=== PATIENT | female | born 2000 | race Hispanic/Latino ===

== ENCOUNTER 2022-07-20 11:01 | Emergency (ER) | payer OTHER, BC ==
[2022-07-20] MEDS ORDERED: Lidocaine 2% PF 5 ML VIAL ONE (11:53)
[2022-07-20] MEDS ORDERED: Triple Antibiotic Oint 1 GM Packet ONE (11:53)
[2022-07-20] MEDS ORDERED: Bacitracin 1 PK ONE (14:15)
[2022-07-20] MEDS ORDERED: Boostrix 0.5 ML (Tdap) VIAL (>/=7 yrs of age) ONE (14:15)
== END 2022-07-20 14:55 | disposition home or self-care (01) ==
LOC: ERS 11:01
DX: S61.452A Open bite of left hand, initial encounter (principal); Z23 Encounter for immunization; W54.0XXA Bitten by dog, initial encounter
CPT/HCPCS: 12001; 12011; 90471; 90715; J2001